=== PATIENT | male | born 1970 | race Caucasian/White ===

== ENCOUNTER 2023-08-11 10:29 | Emergency (ER) | payer OTHER ==
[~2023-08-11] VITALS: Ht 177.8 cm; Wt 136.1 kg
[2023-08-11] MEDS ORDERED: CIPRO500 MG PO (13:06)
[2023-08-11] MEDS ORDERED: HYDROCODON-ACE1 EA11 PO (13:06)
[2023-08-11 14:26] VITALS: BP 159/101
== END 2023-08-11 14:29 | disposition home or self-care (01) ==
LOC: ED 10:29
DX: S62.301A Unspecified fracture of second metacarpal bone, left hand, initial encounter for closed fracture (principal); S62.303A Unspecified fracture of third metacarpal bone, left hand, initial encounter for closed fracture; S22.42XA Multiple fractures of ribs, left side, initial encounter for closed fracture; V86.55XA Driver of 3- or 4- wheeled all-terrain vehicle (ATV) injured in nontraffic accident, initial encounter
CPT/HCPCS: 71100; 71101; 73130; 99284-25

== ENCOUNTER 2023-09-16 08:50 | Day surgery (SDC) | payer OTHER ==
[~2023-09-16] VITALS: Ht 177.8 cm; Wt 134.1 kg
[~2023-09-16 08:50] MED LIST: CEFAZOLIN SODIUM 3 GM/30 ML SYR IV SCH; CIPRO500 MG PO; DEXAMETHASONE SOD PHOS 4 MG/ML VIAL ONE; FAMOTIDINE 20 MG/ 2 ML VIAL ONE; HYDROCODON-ACE1 EA11 PO; IBLOOD GLUCOSE TEST STRIP 1 EA TEST VI PRN; KETOROLAC TROMETHAMINE 30 MG/ML VIAL ONE; LACTATED RINGER'S 1,000 ML IV ONE; LACTATED RINGER'S 1,000 ML IV SCH; LIDOCAINE HCL 1% 5 ML SDV INJ ONE; METOCLOPRAMIDE HCL 10 MG/2 ML SDV IV PRN; METOCLOPRAMIDE HCL 10 MG/2 ML SDV ONE; METOPROLOL TARTRATE 5 MG/5 ML VIAL ONE; MIDAZOLAM HCL 2 MG/2 ML VIAL ONE; MORPHINE SULFATE 10 MG/ML VIAL IV PRN; NALOXONE HCL 0.4 MG SYR IV PRN; PROCHLORPERAZINE EDISYLATE 10 MG/2 ML VIAL IV PRN; droPERidol 5 MG/2 ML VIAL IV PRN; fentaNYL citrate 100 MCG/2 ML VIAL IV PRN; fentaNYL citrate 100 MCG/2 ML VIAL ONE; ondansetron HCL 4 MG/2 ML VIAL IV PRN; ondansetron HCL 4 MG/2 ML VIAL ONE; propofoL 200 MG/20 ML VIAL ONE
[2023-09-16 09:14] VITALS: BP 180/105
[2023-09-16] MEDS ORDERED: fentaNYL citrate 100 MCG/2 ML VIAL ONE (09:37)
[2023-09-16] MEDS ORDERED: MIDAZOLAM HCL 2 MG/2 ML VIAL ONE (09:37)
[2023-09-16] MEDS ORDERED: ondansetron HCL 4 MG/2 ML VIAL IV ONE (10:30)
[2023-09-16] MEDS ORDERED: HYDROCODONE/ACETA 5/325 TAB PO PRN (10:30)
[2023-09-16] MEDS ORDERED: HYDROCODON-ACE1 EA10 PO (11:03)
--- NOTE | 2023-09-16 11:22 | NUR ---
09/16/23 1122 Camilla Garner 1109 PT ARRIVED IN PACU SLEEPY. L ARM ELEVATED ON PILLOW AND ICE PLACED. 1120 NO C/O'S.
[2023-09-16 11:41] VITALS: BP 125/76
[2023-09-16 12:16] VITALS: BP 156/86
--- NOTE | 2023-09-16 12:18 | NUR ---
AMB [place]. VOIDS QS. TAKING WATER WELL. RATES PAIN0/10. REQUESTS TO GO.
--- NOTE | 2023-09-17 07:18 | OR ---
[facility] [address] [facility] [place] [place] [address] Signed DATE OF OPERATION: 09/16/2023 SURGEON: Esequiel Martinez MD PREOPERATIVE DIAGNOSIS: Retained buried pins, left hand. POSTOPERATIVE DIAGNOSIS: Retained buried pins, left hand. PROCEDURE PERFORMED: Removal of hardware deep, left hand. RECORDS MANAGEMENT ASSOCIATE: Aruna Mann PA-C. ANESTHESIA: General. BLOOD LOSS: Minimal. TOURNIQUET TIME: Zero. BRIEF HISTORY: Brigida is a 53-year-old gentleman, who sustained a fall while in the [place]. He underwent debridement and pinning of his index and long metacarpals. Risks and benefits of operative treatment in the form of removal because one of the pins was buried completely were discussed with him and he elected to proceed. DESCRIPTION OF OPERATION: Once consent was obtained, he was taken to the operating room. After adequate anesthesia, he was placed on the OR table with a hand table. The arm was then prepped and draped in a standard sterile fashion. The cross pin was located 1st using image intensifier and a small stab incision was made overlying this. They did use fully threaded pins, so the pin was found with a needle gas truck driver and slowly unscrewed backwards. The two distal pins were sticking out and those were able to be used to be removed using power. All wounds were thoroughly cleansed and the stab incision was closed using LiquiBand and Steri-Strips. He was dressed with Allevyn, sterile gauze and a volar Electronically Signed By: ESEQUIEL MARTINEZ MD 09/17/23 0718 PATIENT NAME: BRIGIDA VICTOR OPERATIVE REPORT DATE OF : 74 REPORT #: [id number] PHYSICIAN: ESEQUIEL MARTINEZ MD PCP: NO PRIMARY CARE PHYSICIAN REPORT IS CONFIDENTIAL AND NOT TO BE RELEASED WITHOUT AUTHORIZATION [address], [place] [address] Signed splint. He tolerated the procedure well. All sponge, needle, and instrument counts were correct. Esequiel Martinez MD BA/MODL /[id number] Copies: ~ Electronically Signed By: ESEQUIEL MARTINEZ MD 09/17/23 0718 PATIENT NAME: BRIGIDA VICTOR OPERATIVE REPORT DATE OF : 74 REPORT #: [id number] PHYSICIAN: ESEQUIEL MARTINEZ MD PCP: NO PRIMARY CARE PHYSICIAN REPORT IS CONFIDENTIAL AND NOT TO BE RELEASED WITHOUT AUTHORIZATION
== END 2023-09-16 12:35 | disposition home or self-care (01) ==
LOC: DS 08:50
PROVIDERS: ATTEND Specialist
PROC: 0XP70YZ Removal of Other Device from Left Upper Extremity, Open Approach (ICD-10-PCS; principal; 2023-09-16 11:45)
DX: Z47.2 Encounter for removal of internal fixation device (principal)
CPT/HCPCS: J0690; J1100; J1885; J2250; J2405; J2704; J2765; J3010; J7121